=== PATIENT | male | born 1975 | race Caucasian/White ===

== ENCOUNTER 2021-10-30 13:13 | Outpatient (CLI) | payer BC, SELFPAY ==
--- NOTE | ~2021-10-30 | MR_ITS ---
EXAMINATION: MR shoulder RT wo con DATE: 10/30/2021 13:52 INDICATION: Chronic right shoulder pain. TECHNIQUE: Magnetic resonance imaging (MRI) of the right shoulder was performed without intravenous c ontrast. Sequences included axial PD-weighted FS FSE, coronal oblique PD-weighted FS FSE and T2-weigh linh FS FSE, and sagittal oblique T2-weighted FS FSE and T1-weighted FSE. COMPARISON: None. FINDINGS: Coracoacromial arch: The acromion undersurface is flat in morphology (type I). There is moderate acromioclavicular joint o steoarthritis including inferiorly directed osteophytes. There is mild subacromial/subdeltoid bursiti s. Rotator cuff: There is moderate supraspinatus and infraspinatus tendinopathy. Teres minor tendon is normal. There i s mild subscapularis tendinopathy. No tear. There is asymmetric fatty atrophy of the rotator cuff mus geovanni bellies. Biceps tendon and glenoid labrum: Biceps tendon is in bicipital groove. There is moderate intra-articular biceps tendinopathy with long itudinal split tear. The glenoid labrum is normal. Fluid: There is no glenohumeral joint effusion. Bones/cartilage: Glenoid cartilage is normal. Humeral head cartilage is normal. IMPRESSION: 1. Moderate intra-articular biceps tendinopathy with longitudinal split tear. 2. Moderate rotator cuff tendinopathy. No tear. 3. Moderate acromioclavicular joint osteoarthritis. 4. Mild subacromial/subdeltoid bursitis. Reviewed, dictated and finalized at location E. ING PROGRAM MANAGER
== END 2021-10-30 13:14 ==
LOC: MICIMG 13:15
PROVIDERS: PCP Family Medicine; Visit Provider Orthopaedic Surgery
DX: M25.511 Pain in right shoulder (principal); G89.29 Other chronic pain; M75.82 Other shoulder lesions, left shoulder; M19.011 Primary osteoarthritis, right shoulder; M75.51 Bursitis of right shoulder
CPT/HCPCS: 73221